=== PATIENT | female | born 1975 | race Caucasian/White ===

== ENCOUNTER 2017-01-19 13:00 | Emergency (ER) | payer MEDICARE, OTHER ==
--- NOTE | 2017-01-19 14:05 | ER Document Report ---
HPI - HPI Patient complains to provider of: worsening right ear pain Onset: Other - 10 days Quality of pain: Throbbing Pain Level: 5 Context: 41 yo female dx otitis externa yesterday and given cipro hc drops by urgent care. Originally given augmentin for otitis media 10 days ago. now has sweling behind right ear. Associated Symptoms: None Exacerbated by: Movement - of external ear Relieved by: Denies - ROS ROS below otherwise negative: Yes Systems Reviewed and Negative: Yes All other systems reviewed and negative - CARDIOVASCULAR Cardiovascular: DENIES: Chest pain - REPRODUCTIVE Reproductive: DENIES: : - DERM Skin Color: Normal Past Medical History - General Information source: Patient - Social History Smoking Status: Current Every Day Smoker Frequency of alcohol use: None Drug Abuse: None Lives with: Family Family History: None Patient has suicidal ideation: No Patient has homicidal ideation: No - Past Medical History Cardiac Medical History: Reports: Hx Hypercholesterolemia, Hx Hypertension Pulmonary Medical History: Endocrine Medical History: Reports: Hx Diabetes Mellitus Type 2, Hx Hypothyroidism Renal/ Medical History: Denies: Hx Peritoneal Dialysis GI Medical History: Musculoskeltal Medical History: Psychiatric Medical History: Reports: Hx Bipolar Disorder Traumatic Medical History: Reports: Hx Fractures - left ankle Infectious Medical History: Past Surgical History: Reports: Hx Cholecystectomy, Hx Orthopedic Surgery, Hx Tonsillectomy. Denies: Hx Pacemaker - Immunizations Hx Diphtheria, Pertussis, Tetanus Vaccination: Yes Vertical Provider Document - CONSTITUTIONAL Agree With Documented VS: Yes Exam Limitations: No Limitations General Appearance: No Apparent Distress - INFECTION CONTROL TRAVEL OUTSIDE OF THE [place] IN LAST 30 DAYS: No - HEENT HEENT: Tympanic Membrane Red. negative: Tympanic Membrane Bulging Notes: swelling to right canal, able to see the TM. posterior auricular node. NO cellulitis. Mastoid non tender. - NECK Neck: Supple - RESPIRATORY Respiratory: Breath Sounds Normal, No Respiratory Distress O2 Sat by Pulse Oximetry: 92 - CARDIOVASCULAR Cardiovascular: Regular Rate, Regular Rhythm - NEURO Level of Consciousness: Awake, Alert, Appropriate - DERM Integumentary: Warm, Dry Course - Re-evaluation Re-evalutation: 01/19/17 14:16 pt has progressed to external ear infection, so added oral cipro to the drops - Vital Signs Vital signs: Temp Pulse Resp BP Pulse Ox 98.7 F 88 16 149/78 H 92 01/19/17 13:22 01/19/17 13:22 01/19/17 13:22 01/19/17 13:22 01/19/17 13:22 Discharge - Discharge Clinical Impression: auricular adenopathy Otitis externa Qualifiers: Otitis externa type: unspecified type Laterality: right Chronicity: acute Qualified Code(s): H60.501 - Unspecified acute noninfective otitis externa, right ear Condition: Good Disposition: HOME, SELF-CARE Instructions: Acetaminophen, Otitis Externa ([facility]), Oral Narcotic Medication ( [facility]), Steroid Medication, Ciprofloxacin ([facility]), ENT Additional Instructions: warm compress stop the tylenol with codiene to er if increased swelling see ENT doctor if persists continue the augmentin Please complete the patient satisfaction survey if you get one, and return it.. If you do not receive a survey, then you can go to the [facility] website, [email or web address] and place your comments about your very good care. Thank you very much. It was a pleasure being your medical provider today. Prescriptions: Ciprofloxacin HCl [Cipro 500 mg Tablet] 500 mg PO BID #14 tablet Oxycodone HCl/Acetaminophen [Percocet 5-325 mg Tablet] 1 - 2 tab PO ASDIR PRN # 15 tablet PRN Reason: Forms: Return to Work Referrals: LINO NIX MD [Primary Care Provider] - Follow up as needed
[2017-01-19] MEDS ORDERED: PREDNISONE 20 MG TABLET PO ONE (14:13)
[2017-01-19] MEDS ORDERED: CIPROFLOXACIN HCL 500 MG TABLET PO ONE (14:13)
[2017-01-19 14:33] VITALS: BP 140/82
== END 2017-01-19 14:33 | disposition home or self-care (01) ==
LOC: ER 13:00
DX: H60.501 Unspecified acute noninfective otitis externa, right ear (principal); R59.0 Localized enlarged lymph nodes; H92.01 Otalgia, right ear; F17.200 Nicotine dependence, unspecified, uncomplicated
CPT/HCPCS: 99282; A9270 ×2; J7512

== ENCOUNTER → 2017-05-31 | Outpatient (CLI) | payer MEDICARE, OTHER ==
[2017-05-31 12:05] LABS: HEMATOCRIT 34.5 % (36.0-47.0); HGB HCT DIFFERENCE 1.5; MEAN CORPUSCULAR HEMOGLOBIN 36.5 pg (27.0-33.4); MEAN CORPUSCULAR HGB CONC 34.7 g/dL (32.0-36.0); MEAN CORPUSCULAR VOLUME 105 fl (80-97); RED BLOOD COUNT 3.28 10^6/uL (3.72-5.28); RED CELL DISTRIBUTION WIDTH 12.4 % (11.5-14.0); WHITE BLOOD COUNT 7.1 10^3/uL (4.0-10.5)
[2017-05-31 12:27] LABS: ALANINE AMINOTRANSFERASE 30 U/L (9-52); ALBUMIN 4.3 g/dL (3.5-5.0); ALKALINE PHOSPHATASE 57 U/L (38-126); ANION GAP 12 (5-19); ASPARTATE AMINO TRANSFERASE 31 U/L (14-36); BILIRUBIN,DIRECT 0.6 mg/dL (0.0-0.4); BILIRUBIN,TOTAL 0.8 mg/dL (0.2-1.3); BLOOD UREA NITROGEN 11 mg/dL (7-20); CALCIUM 9.3 mg/dL (8.4-10.2); CARBON DIOXIDE 25 mmol/L (22-30); CHLORIDE 102 mmol/L (98-107); CHOLESTEROL 219.26 mg/dL (0-200); CREATININE RESULT 0.64 mg/dL (0.52-1.25); Direct HDL 37 mg/dL (>40); GLUCOSE 124 mg/dL (75-110); LITHIUM 0.7 mEq/L (0.6-1.2); POTASSIUM 4.9 mmol/L (3.6-5.0); SODIUM 138.7 mmol/L (137-145); TRIGLYCERIDES 355 mg/dL (<150)
[2017-05-31 12:38] LABS: DIRECT LDL 137 mg/dL (<100); VALPROIC ACID 58.9 ug/mL (50.0-120.0)
== END ==
LOC: OD 11:14
PROVIDERS: ATTEND Nurse Practitioner Primary Care
DX: Z79.899 Other long term (current) drug therapy (principal); F32.9 Major depressive disorder, single episode, unspecified; R51 Headache; E66.01 Morbid (severe) obesity due to excess calories; L63.9 Alopecia areata, unspecified; F41.9 Anxiety disorder, unspecified; R60.9 Edema, unspecified
CPT/HCPCS: 36415; 80053; 80061; 80164; 80178; 82306; 83036; 84443; 85027

== ENCOUNTER 2017-07-30 16:41 | Emergency (ER) | payer MEDICARE, OTHER ==
[2017-07-30] MEDS ORDERED: KETOROLAC TROMETHAMINE 60 MG/2 ML SDV IM ONE (18:10)
--- NOTE | 2017-07-30 18:19 | ER Document Report ---
ED Extremity Problem, Lower - General Chief Complaint: Ankle Pain Stated Complaint: RIGHT ANKLE PAIN, SWELLING Time Seen by Provider: 07/30/17 17:42 Mode of Arrival: Wheelchair Information source: Patient Notes: 41-year-old female presents to ED for complaint of right ankle pain. She states she does not recall any injury but it feels like it is broken. She states one day she woke up with pain in the ankle and the pain has been getting increasingly worse with swelling. She has a history of fracture to the left ankle with multiple surgeries. And she states feels just like when she broke her left ankle. TRAVEL OUTSIDE OF THE [place] IN LAST 30 DAYS: No - HPI Patient complains to provider of: Pain, Swelling Location: Ankle Occurred: Other - Last 3-4 days Onset/Duration: Gradual Quality of pain: Sharp, Throbbing Severity: Moderate Pain Level: 4 Context: Other - Does not remember any injury Recent injury: Possibly - Does not remember any injury Associated symptoms: Painful ambulation Exacerbated by: Hanging down, Movement, Walking Relieved by: Nothing - Related Data Allergies/Adverse Reactions: celecoxib [From Celebrex] Allergy (Severe, Verified 07/30/17 16:45) Throat swells promethazine HCl [From Phenergan] Allergy (Severe, Verified 07/30/17 16:45) Phelebitis in arm (IV Phenergan only) Sulfa (Sulfonamide Antibiotics) Allergy (Severe, Verified 07/30/17 16:45) Throat swells Tetanus Toxoid,Fluid * [Tetanus Toxoid,Fluid] Allergy (Severe, Verified 16:45) Hives ziprasidone HCl [From Geodon] Allergy (Severe, Verified 07/30/17 16:45) Throat swells ziprasidone mesylate [From Geodon] Allergy (Severe, Verified 07/30/17 16:45) Throat swells zolpidem tartrate [From Ambien] Allergy (Severe, Verified 07/30/17 16:45) Hallucinations lamotrigine [From Lamictal] Allergy (Intermediate, Verified 07/30/17 16:45) Rash on chest Past Medical History - General Information source: Patient - Social History Smoking Status: Former Smoker Cigarette use (# per day): No Chew tobacco use (# tins/day): No Smoking Education Provided: No Frequency of alcohol use: None Drug Abuse: None Occupation: None Lives with: Parents Family History: Arthritis, COPD, CVA, DM, Hyperlipidemia, Malignancy. denies: CAD, Hypertension, Thyroid Disfunction Patient has suicidal ideation: No Patient has homicidal ideation: No - Past Medical History Cardiac Medical History: Reports: Hx Hypercholesterolemia, Hx Hypertension Pulmonary Medical History: Reports: None EENT Medical History: Reports: None Neurological Medical History: Reports: Hx Migraine Endocrine Medical History: Reports: Hx Diabetes Mellitus Type 2, Hx Hypothyroidism Renal/ Medical History: Reports: None Malignancy Medical History: Reports: None GI Medical History: Reports: None Musculoskeltal Medical History: Reports Hx Arthritis, Reports Hx Musculoskeletal Deformity, Reports Hx Musculoskeletal Trauma Skin Medical History: Reports None Psychiatric Medical History: Reports: Hx Anxiety, Hx Bipolar Disorder Traumatic Medical History: Reports: Hx Fractures - left ankle Infectious Medical History: Reports: None Past Surgical History: Reports: Hx Cholecystectomy, Hx Myringotomy - Right ear to, Hx Oral Surgery - [place] teeth, Hx Orthopedic Surgery, Hx Tonsillectomy - Immunizations Hx Diphtheria, Pertussis, Tetanus Vaccination: Yes Review of Systems - Review of Systems Constitutional: No symptoms reported EENT: No symptoms reported Cardiovascular: No symptoms reported Respiratory: No symptoms reported Gastrointestinal: No symptoms reported Genitourinary: No symptoms reported Female Genitourinary: No symptoms reported Musculoskeletal: Ankle swelling - And pain Skin: No symptoms reported Hematologic/Lymphatic: No symptoms reported Neurological/Psychological: No symptoms reported Physical Exam - Vital signs Vitals: Temp Pulse Resp BP Pulse Ox 98.8 F 100 20 152/100 H 94 07/30/17 16:46 07/30/17 16:46 07/30/17 16:46 07/30/17 16:46 07/30/17 16:46 Interpretation: Normal - General General appearance: Appears well, Alert - HEENT Head: Normocephalic, Atraumatic Eyes: Normal Pupils: PERRL - Respiratory Respiratory status: No respiratory distress Chest status: Nontender Breath sounds: Normal Chest palpation: Normal - Cardiovascular Rhythm: Regular Heart sounds: Normal auscultation Murmur: No - Abdominal Inspection: Normal Distension: No distension Bowel sounds: Normal Tenderness: Nontender Organomegaly: No organomegaly - Back Back: Normal, Nontender - Extremities General upper extremity: Normal inspection, Nontender, Normal color, Normal ROM , Normal temperature General lower extremity: Normal inspection, Normal color, Normal temperature Ankle: Tender, Limited ROM - Due to pain. No: Abrasion, Deformity, Ecchymosis, Edema, Instability, Laceration, Positive [place]'s test, Unable to bear weight - Neurological Neuro grossly intact: Yes Cognition: Normal Orientation: AAOx4 [place] Coma Scale Eye Opening: Spontaneous [place] Coma Scale Verbal: Oriented [place] Coma Scale Motor: Obeys Commands Sepideh Coma Scale Total: 15 Speech: Normal Motor strength normal: LUE, RUE, LLE, RLE Sensory: Normal - Psychological Associated symptoms: Normal affect, Normal mood - Skin Skin Temperature: Warm Skin Moisture: Dry Skin Color: Normal Course - Re-evaluation Re-evalutation: 07/30/17 19:50 Discussed x-rays with patient. X-ray shows heel spurs. Patient was given instructions of care for heel spurs exercise ibuprofen elevation ice. And she was given name and number of Dr. Castillo who is a wood fence installer for follow-up if the pain continues. - Vital Signs Vital signs: Temp Pulse Resp BP Pulse Ox 98.8 F 84 20 149/80 H 94 07/30/17 16:46 07/30/17 19:34 07/30/17 16:46 07/30/17 19:34 07/30/17 19:34 - Diagnostic Test Radiology reviewed: Image reviewed, Reports reviewed Discharge - Discharge Clinical Impression: Heel spur Qualifiers: Laterality: right Qualified Code(s): M77.31 - Calcaneal spur, right foot Condition: Stable Disposition: HOME, SELF-CARE Additional Instructions: Plantar Fasciitis or Heel Spur Plantar fasciitis is an inflammation of a ligament on the underside of the foot. It can be caused by injury, overuse such as running, or poorly fitting shoes. There may be a bone spur on the heel if inflammation has persisted a long time. Plantar fasciitis is treated with stretching exercises and antiinflammatory medicine. More severe cases may require injection of cortisone. It may take several weeks to get better. If nothing gives relief, an operation to remove the heel spur may help. Call or return if there is redness, increasing pain, swelling, fever, or any other new symptoms. Anti-Inflammatory Medication You have received a prescription for an antiinflammatory agent. This is an excellent, safe drug for pain control. In addition, it has potent antiinflammatory effects which are beneficial, especially in the treatment of injuries, arthritis, or tendonitis. It's best to take this medicine with food. Persons with ulcer disease or allergy to aspirin should notify their physician of this before taking this drug. Take the medication exactly as prescribed. Don't take additional doses unless instructed to do so by your doctor. If you develop wheezing, shortness of breath, hives, faintness, stomach pain, vomiting, or dark black stools, return for re-evaluation at once. Exercises for the Foot Muscles Stretching and strengthening of the foot muscles is an important part of recovery from injury, as well as in treatment and prevention of overuse syndromes like plantar fasciitis. TOWEL CURLS: Put your foot on a dry towel. Curl your toes to pick it up, then drop it. As it becomes easier, use a heavier towel. Repeat 20 times, twice daily. QUINTANILLA CURLS: Lift and turn your knee, so your foot is against the opposite leg about mid-quintanilla. Try to "grab" the entire quintanilla bone with your toes, while moving your foot up and down the leg for one minute. Repeat twice daily. TOE LIFTS: Put your opposite foot over your 2nd to 5th toes. Now lift the toes up, pushing the other foot upward. Repeat 10 times, twice daily. Repeat using the large toe. EVERSIONS: Cross the opposite foot over, placing the heel just behind the 4th and 5th toes. Try to lift up the outside of the bottom foot. Hold 10 seconds. Repeat twice daily. FOLLOW-UP CARE: If you have been referred to a physician for follow-up care, call the physician s office for an appointment as you were instructed or within the next two days. If you experience worsening or a significant change in your symptoms, notify the physician immediately or return to the Emergency Department at any time for re-evaluation. Prescriptions: Naproxen 500 mg PO BIDP PRN #14 tablet PRN Reason: Forms: Elevated Blood Pressure Referrals: LINO NIX MD [Primary Care Provider] - Follow up as needed EZEKIEL CASTILLO DPM [ACTIVE STAFF] - Follow up as needed
--- NOTE | 2017-07-30 18:28 | RADIOLOGY REPORT (SQ) ---
EXAM DESCRIPTION: ANKLE RIGHT COMPLETE COMPLETED DATE/TIME: 07/30/2017 6:17 pm REASON FOR STUDY: pain and swelling COMPARISON: None. NUMBER OF VIEWS: Three views. TECHNIQUE: AP, lateral, and oblique radiographic images acquired of the right ankle. LIMITATIONS: None. FINDINGS: MINERALIZATION: Normal. BONES: No fracture or dislocation. Calcaneal spurs are present. JOINTS: No effusions. SOFT TISSUES: No soft tissue swelling. No foreign body. OTHER: No other significant finding. IMPRESSION: No acute abnormality. Calcaneal spurs. TECHNICAL DOCUMENTATION: JOB ID: [id number] [employer]- All Rights Reserved
[2017-07-30 19:41] VITALS: BP 149/80
== END 2017-07-30 19:34 | disposition home or self-care (01) ==
LOC: ER 16:41
DX: M77.31 Calcaneal spur, right foot (principal); M25.571 Pain in right ankle and joints of right foot; E78.00 Pure hypercholesterolemia, unspecified; I10 Essential (primary) hypertension; E11.9 Type 2 diabetes mellitus without complications; E03.9 Hypothyroidism, unspecified; Z88.2 Allergy status to sulfonamides; Z88.7 Allergy status to serum and vaccine; Z87.891 Personal history of nicotine dependence; Z90.49 Acquired absence of other specified parts of digestive tract
CPT/HCPCS: 99283; 96372; 73610; J1885

== ENCOUNTER 2017-09-09 13:24 | Emergency (ER) | payer MEDICARE, OTHER ==
[2017-09-09] MEDS ORDERED: HYDROCODONE/ACETAMINOPHEN 10-325 MG TABLET PO ONE (14:25)
[2017-09-09] MEDS ORDERED: ONDANSETRON 4 MG TAB.RAPDIS PO ONE (14:25)
--- NOTE | 2017-09-09 14:30 | ER Document Report ---
ED Fall - General Mode of Arrival: Ambulatory Information source: Patient TRAVEL OUTSIDE OF THE U.[place] IN LAST 30 DAYS: No <SURY CORMIER - Last Filed: 09/09/17 14:35> <MIKEL FUENTES - Last Filed: 09/09/17 16:15> - General Chief Complaint: Fall Stated Complaint: FALL/HEAD INJURY,BACK PAIN,HEADACHE Time Seen by Provider: 09/09/17 14:20 Notes: Patient is a 42 year old female who is presenting to the emergency department complaining of back pain and headache secondary to a mechanical fall onset 0700 this morning. Patient states that she was walking down steps with a child when she proceeded to fall down four steps on her back. Patient states that she hit her head twice on the concrete. Patient states that she loss of consciousness for 1 minute which was witnessed by family members. Patient states she proceeded to drive here from [place]. Patients associated symptoms include neck soreness, and dizziness. Patient denies blurry vision or confusion. (SURY CORMIER) - Related data Allergies/Adverse Reactions: celecoxib [From Celebrex] Allergy (Severe, Verified 09/09/17 13:36) Throat swells promethazine HCl [From Phenergan] Allergy (Severe, Verified 09/09/17 13:36) Phelebitis in arm (IV Phenergan only) Sulfa (Sulfonamide Antibiotics) Allergy (Severe, Verified 09/09/17 13:36) Throat swells Tetanus Toxoid,Fluid * [Tetanus Toxoid,Fluid] Allergy (Severe, Verified 13:36) Hives ziprasidone HCl [From Geodon] Allergy (Severe, Verified 09/09/17 13:36) Throat swells ziprasidone mesylate [From Geodon] Allergy (Severe, Verified 09/09/17 13:36) Throat swells zolpidem tartrate [From Ambien] Allergy (Severe, Verified 09/09/17 13:36) Hallucinations lamotrigine [From Lamictal] Allergy (Intermediate, Verified 09/09/17 13:36) Rash on chest Home Medications: Current Home Medications Buspirone HCl [Buspirone HCl] 1 tab PO DAILY 09/09/17 [History] Ergocalciferol (Vitamin D2) [Vitamin D2] 1.25 mg PO ASDIR PRN 12/11/17 [History] [place] Carbonate [B[place] Carbonate ER] 1 tab PO ASDIR PRN 09/09/17 [History] Metformin HCl [Metformin HCl ER] 1 tab PO BID 09/09/17 [History] Norethindrone-E.estradiol-Iron [Junel Fe 1 mg-20 Mcg Tablet] 1 tab PO DAILY 08/16 [History] [place]-3 Acid Ethyl Esters [Lovaza 1 gm Capsule] 2 tab PO BID 09/09/17 [History] Quetiapine Fumarate [Seroquel Xr] 2 tab PO QHS 09/09/17 [History] Past Medical History - General Information source: Patient - Social History Smoking Status: Unknown if Ever Smoked Family History: Arthritis, COPD, CVA, DM, Hyperlipidemia, Malignancy - Past Medical History Cardiac Medical History: Reports: Hx Hypercholesterolemia, Hx Hypertension Pulmonary Medical History: Neurological Medical History: Reports: Hx Migraine Endocrine Medical History: Reports: Hx Diabetes Mellitus Type 2, Hx Hypothyroidism GI Medical History: Musculoskeltal Medical History: Reports Hx Arthritis, Reports Hx Musculoskeletal Deformity, Reports Hx Musculoskeletal Trauma Psychiatric Medical History: Reports: Hx Anxiety, Hx Bipolar Disorder Traumatic Medical History: Reports: Hx Fractures - left ankle Infectious Medical History: Past Surgical History: Reports: Hx Cholecystectomy, Hx Myringotomy - Right ear to, Hx Oral Surgery - [place] teeth, Hx Orthopedic Surgery, Hx Tonsillectomy - Immunizations Hx Diphtheria, Pertussis, Tetanus Vaccination: Yes <SURY CORMIER - Last Filed: 09/09/17 14:35> Review of Systems - Review of Systems Constitutional: No symptoms reported EENT: No symptoms reported Cardiovascular: See HPI, Dizziness Respiratory: No symptoms reported Gastrointestinal: No symptoms reported Genitourinary: No symptoms reported Female Genitourinary: No symptoms reported Musculoskeletal: See HPI, Back pain, Neck pain Skin: No symptoms reported Hematologic/Lymphatic: No symptoms reported Neurological/Psychological: See HPI, Lost consciousness, Headaches -: Yes All other systems reviewed and negative <SURY CORMIER - Last Filed: 09/09/17 14:35> Physical Exam - General General appearance: Appears well, Alert In distress: None - HEENT Head: Normocephalic, Other - tenderness to palpation to the right occiput Neck: Other - Cervical spine is tender to palpation - Respiratory Respiratory status: No respiratory distress - Cardiovascular Rhythm: Regular Heart sounds: Normal auscultation - Abdominal Inspection: Normal - Back Back: Tender - to paraspinal muscles and external right iliac crest. - Extremities General upper extremity: Normal ROM General lower extremity: Normal ROM - Neurological Neuro grossly intact: Yes Cognition: Normal Orientation: AAOx4 [place] Coma Scale Eye Opening: Spontaneous [place] Coma Scale Verbal: Oriented [place] Coma Scale Motor: Obeys Commands Sepide[place] Coma Scale Total: 15 Speech: Normal - Psychological Associated symptoms: Normal affect, Normal mood - Skin Skin Temperature: Warm Skin Moisture: Dry Skin Color: Normal <SURY CORMIER - Last Filed: 09/09/17 14:35> - Vital signs Vitals: Temp Pulse Resp BP Pulse Ox 99.4 F 94 20 157/85 H 96 09/09/17 13:42 09/09/17 13:42 09/09/17 13:42 09/09/17 13:42 09/09/17 13:42 Course - Diagnostic Test Radiology reviewed: Image reviewed - Chronic changes, lumbar spondylosis. No evidence of acute injury., Reports reviewed <MIKEL FUENTES - Last Filed: 09/09/17 16:15> - Vital Signs Vital signs: Temp Pulse Resp BP Pulse Ox 99.4 F 94 20 157/85 H 96 09/09/17 13:42 09/09/17 13:42 09/09/17 13:42 09/09/17 13:42 09/09/17 13:42 Discharge <SURY CORMIER - Last Filed: 09/09/17 14:35> <MIKEL FUENTES - Last Filed: 09/09/17 16:15> - Discharge Clinical Impression: Closed head injury, Low back strain Condition: Good Disposition: HOME, SELF-CARE Additional Instructions: Return for any problem or concern. Ice to areas of pain and swelling. Contact your primary care physician for follow-up. Start initially with an anti- inflammatory such as ibuprofen or Aleve. Prescribed medications may cause sedation, unsteadiness, as well as some altered mental status so use caution with ambulation as well as any decision making. Prescriptions: Acetaminophen with Codeine [Tylenol #3 Tablet] 1 - 2 each PO Q6HP PRN #14 tablet PRN Reason: For Pain Methocarbamol [Robaxin 750 mg Tablet] 750 - 1,500 mg PO Q8HP PRN #20 tablet PRN Reason: For Pain Scribe Attestation: 09/09/17 16:15 I personally performed the services provided in the documentation, reviewed and edited the documentation which was dictated to the scribe in my presence. It accurately records my words and actions. ANIBAL (MIKEL FUENTES) Scribe Documentation - Scribe Written by Pawel:: Pawel Solis, 09/09/2017 14:35 acting as scribe for :: Meg <SURY CORMIER - Last Filed: 09/09/17 14:35>
--- NOTE | 2017-09-09 15:00 | RADIOLOGY REPORT (SQ) ---
EXAM DESCRIPTION: CT HEAD WITHOUT COMPLETED DATE/TIME: 09/09/2017 2:46 pm REASON FOR STUDY: Trauma with pain COMPARISON: 02/27/2011 TECHNIQUE: Axial images acquired through the brain without intravenous contrast. Images reviewed wi th bone, brain and subdural windows. Images stored on PACS. All CT scanners at this facility use dose modulation, iterative reconstruction, and/or weight based d osing when appropriate to reduce radiation dose to as low as reasonably achievable (ALARA). [facility]: Dose Right [facility]: CareDose [facility]: Dose Right [facility]: Teradose 4D [facility]: Smart BlackDuck RADIATION DOSE: CT Rad equipment meets quality standard of care and radiation dose reduction techniq ues were employed. CTDIvol: 64.6 mGy. DLP: 1034 mGy-cm. mGy. LIMITATIONS: None. FINDINGS: VENTRICLES: Normal size and contour. CEREBRUM: No masses. No hemorrhage. No midline shift. No evidence for acute infarction. Normal gra y/white matter differentiation. No areas of low density in the white matter. CEREBELLUM: No masses. No hemorrhage. No alteration of density. No evidence for acute infarction. EXTRAAXIAL SPACES: No fluid collections. No masses. ORBITS AND GLOBE: No intra- or extraconal masses. Normal contour of globe without masses. CALVARIUM: No fracture. PARANASAL SINUSES: No fluid or mucosal thickening. SOFT TISSUES: No mass or hematoma. OTHER: No other significant finding. IMPRESSION: NORMAL BRAIN CT WITHOUT CONTRAST. EVIDENCE OF ACUTE STROKE: NO. COMMENT: Quality ID # [id number]: Final reports with documentation of one or more dose reduction techniques (e.g., Automated exposure control, adjustment of the mA and/or kV according to patient size, use of iterative reconstruction technique) TECHNICAL DOCUMENTATION: JOB ID: [id number] [employer]- All Rights Reserved
--- NOTE | 2017-09-09 15:16 | RADIOLOGY REPORT (SQ) ---
EXAM DESCRIPTION: CT CERVICAL SPINE WITHOUT COMPLETED DATE/TIME: 09/09/2017 2:46 pm REASON FOR STUDY: Trauma with pain COMPARISON: 02/27/2011 TECHNIQUE: Axial images acquired through the cervical spine without intravenous contrast. Images re viewed with lung, soft tissue and bone windows. Reconstructed coronal and sagittal MPR images review ed. Images stored on PACS. All CT scanners at this facility use dose modulation, iterative reconstruction, and/or weight based d osing when appropriate to reduce radiation dose to as low as reasonably achievable (ALARA). [facility]: Dose Right [facility]: CareDose [facility]: Dose Right [facility]: Teradose 4D [facility]: Smart GoodThreads RADIATION DOSE: CT Rad equipment meets quality standard of care and radiation dose reduction techniq ues were employed. CTDIvol: 21.9 mGy. DLP: 432 mGy-cm. mGy. LIMITATIONS: Motion artifact. FINDINGS: ALIGNMENT: Anatomic. MINERALIZATION: Normal. VERTEBRAL BODIES: No fractures or dislocation. DISCS: No significant disc disease. FACETS, LATERAL MASSES, POSTERIOR ELEMENTS: No fractures. No dislocation. No acute findings. HARDWARE: None in the spine. VISUALIZED RIBS: No fractures. LUNG APICES AND SOFT TISSUES: No significant or acute findings. OTHER: No other significant finding. IMPRESSION: NO ACUTE OR SIGNIFICANT FINDINGS IN THE CERVICAL SPINE. TECHNICAL DOCUMENTATION: JOB ID: [id number] Quality ID # [id number]: Final reports with documentation of one or more dose reduction techniques (e.g., Au tomated exposure control, adjustment of the mA and/or kV according to patient size, use of iterative reconstruction technique) 2010 [employer]- All Rights Reserved
--- NOTE | 2017-09-09 15:47 | RADIOLOGY REPORT (SQ) ---
EXAM DESCRIPTION: L SPINE WHOLE COMPLETED DATE/TIME: 09/09/2017 3:10 pm REASON FOR STUDY: Trauma with pain COMPARISON: 02/27/2011 NUMBER OF VIEWS: Five views including obliques. TECHNIQUE: AP, lateral, oblique, and sacral radiographic images acquired of the lumbar spine. LIMITATIONS: None. FINDINGS: MINERALIZATION: Normal. SEGMENTATION: Normal. No transitional anatomy. ALIGNMENT: Mild convex right scoliosis. VERTEBRAE: Maintained height. No fracture or worrisome bone lesion. DISCS: Multilevel disc space narrowing with osteophytes. POSTERIOR ELEMENTS: Pedicles and facets are intact. No pars defect or posterior arch defects. Facet arthropathy is present. HARDWARE: None in the spine. PARASPINAL SOFT TISSUES: Normal. PELVIS: Intact as visualized. No fractures or worrisome bone lesions. SI joints intact. OTHER: No other significant finding. IMPRESSION: Spondylosis. No acute findings. TECHNICAL DOCUMENTATION: JOB ID: [id number] [employer]- All Rights Reserved
[2017-09-09 16:36] VITALS: BP 149/82
== END 2017-09-09 16:23 | disposition home or self-care (01) ==
LOC: ER 13:24
DX: S39.012A Strain of muscle, fascia and tendon of lower back, initial encounter (principal); R51 Headache; R42 Dizziness and giddiness; M54.9 Dorsalgia, unspecified; W10.9XXA Fall (on) (from) unspecified stairs and steps, initial encounter; E78.00 Pure hypercholesterolemia, unspecified; I10 Essential (primary) hypertension; E11.9 Type 2 diabetes mellitus without complications; E03.9 Hypothyroidism, unspecified; Z88.2 Allergy status to sulfonamides; Z90.49 Acquired absence of other specified parts of digestive tract
CPT/HCPCS: 99284; 72110; 70450; 72125; A9270 ×2; S0119

== ENCOUNTER 2018-04-20 14:46 | Emergency (ER) | payer MEDICARE, OTHER ==
--- NOTE | 2018-04-20 16:05 | RADIOLOGY REPORT (SQ) ---
EXAM DESCRIPTION: FOOT RIGHT COMPLETE COMPLETED DATE/TIME: 04/20/2018 3:50 pm REASON FOR STUDY: pain COMPARISON: None. NUMBER OF VIEWS: Three views. TECHNIQUE: AP, lateral and oblique without weight bearing radiographic images acquired of the right foot. LIMITATIONS: None. FINDINGS: MINERALIZATION: Normal. BONES: No acute fracture or dislocation. No worrisome bone lesions. Plantar calcaneal spur. JOINTS: No erosions. No jose-articular osteopenia. No chondrocalcinosis. SOFT TISSUES: No swelling. No calcifications. OTHER: No other significant finding. IMPRESSION: HEEL SPUR. NO OTHER SIGNIFICANT FINDINGS. TECHNICAL DOCUMENTATION: JOB ID: [id number] [employer]- All Rights Reserved Reading location - IP/workstation name: [email or web address]
--- NOTE | 2018-04-20 16:24 | ER Document Report ---
ED Extremity Problem, Lower - General Chief Complaint: Foot Pain Stated Complaint: RIGHT FOOT PAIN Time Seen by Provider: 04/20/18 15:10 Mode of Arrival: Wheelchair Information source: Patient Notes: Patient presents with complaints of right ankle pain that started yesterday. Patient denies any injuries but reports she may have twisted it wrong and she is unable to bear any weight. TRAVEL OUTSIDE OF THE [place] IN LAST 30 DAYS: No - Related Data Allergies/Adverse Reactions: celecoxib [From Celebrex] Allergy (Severe, Verified 04/20/18 14:48) Throat swells promethazine HCl [From Phenergan] Allergy (Severe, Verified 04/20/18 14:48) Phelebitis in arm (IV Phenergan only) Sulfa (Sulfonamide Antibiotics) Allergy (Severe, Verified 04/20/18 14:48) Throat swells Tetanus Toxoid,Fluid * [Tetanus Toxoid,Fluid] Allergy (Severe, Verified 14:48) Hives ziprasidone HCl [From Geodon] Allergy (Severe, Verified 04/20/18 14:48) Throat swells ziprasidone mesylate [From Geodon] Allergy (Severe, Verified 04/20/18 14:48) Throat swells zolpidem tartrate [From Ambien] Allergy (Severe, Verified 04/20/18 14:48) Hallucinations lamotrigine [From Lamictal] Allergy (Intermediate, Verified 04/20/18 14:48) Rash on chest Past Medical History - General Information source: Patient - Social History Smoking Status: Never Smoker Chew tobacco use (# tins/day): No Drug Abuse: None Family History: Arthritis, COPD, CVA, DM, Hyperlipidemia, Malignancy Patient has suicidal ideation: No Patient has homicidal ideation: No - Past Medical History Cardiac Medical History: Reports: Hx Hypercholesterolemia, Hx Hypertension Denies: Hx Coronary Artery Disease, Hx Heart Attack Pulmonary Medical History: Denies: Hx Asthma, Hx Bronchitis, Hx COPD, Hx Pneumonia Neurological Medical History: Reports: Hx Migraine. Denies: Hx Cerebrovascular Accident, Hx Seizures Endocrine Medical History: Reports: Hx Diabetes Mellitus Type 2, Hx Hypothyroidism Renal/ Medical History: Denies: Hx Peritoneal Dialysis GI Medical History: Musculoskeletal Medical History: Reports Hx Arthritis, Reports Hx Musculoskeletal Deformity, Reports Hx Musculoskeletal Trauma Psychiatric Medical History: Reports: Hx Anxiety, Hx Bipolar Disorder Traumatic Medical History: Reports: Hx Fractures - left ankle Infectious Medical History: Past Surgical History: Reports: Hx Cholecystectomy, Hx Myringotomy - Right ear to, Hx Oral Surgery - [place] teeth, Hx Orthopedic Surgery, Hx Tonsillectomy. Denies: Hx Pacemaker - Immunizations Hx Diphtheria, Pertussis, Tetanus Vaccination: Yes Review of Systems - Review of Systems Constitutional: No symptoms reported EENT: No symptoms reported Cardiovascular: No symptoms reported Respiratory: No symptoms reported Gastrointestinal: No symptoms reported Genitourinary: No symptoms reported Female Genitourinary: No symptoms reported Musculoskeletal: See HPI Skin: No symptoms reported Hematologic/Lymphatic: No symptoms reported Neurological/Psychological: No symptoms reported Physical Exam - Vital signs Vitals: Temp Pulse Resp BP Pulse Ox 99.2 F 93 20 148/82 H 97 04/20/18 14:52 04/20/18 14:52 04/20/18 14:52 04/20/18 14:52 04/20/18 14:52 - Notes Notes: PHYSICAL EXAMINATION: GENERAL: Well-appearing, well-nourished and in no acute distress. HEAD: Atraumatic, normocephalic. EYES: Pupils equal round and reactive to light, extraocular movements intact, conjunctiva are normal. ENT: Nares patent, oropharynx clear without exudates. Moist mucous membranes. NECK: Normal range of motion, supple without lymphadenopathy LUNGS: Breath sounds clear to auscultation bilaterally and equal. No wheezes rales or rhonchi. HEART: Regular rate and rhythm without murmurs ABDOMEN: Soft, nontender, nondistended abdomen. No guarding, no rebound. No masses appreciated. Female : deferred Musculoskeletal: Normal range of motion, no pitting or edema. No cyanosis. Pain with movement to right ankle and foot. NEUROLOGICAL: Cranial nerves grossly intact. Normal speech, normal gait. Normal sensory, motor exams PSYCH: Normal mood, normal affect. SKIN: Warm, Dry, normal turgor, no rashes or lesions noted. Course - Re-evaluation Re-evalutation: X-ray is negative for any acute fractures or dislocations. Will place patient in an Ivan wrap and crutches for comfort. Patient will follow-up with her primary care provider and in the meantime ice and elevate as much as possible. Patient instructed to take Motrin 600 mg every 6 hours for pain. Patient verbalizes understanding and agreement with plan of care. - Vital Signs Vital signs: Temp Pulse Resp BP Pulse Ox 98.4 F 82 16 146/78 H 99 04/20/18 16:25 04/20/18 16:25 04/20/18 16:25 04/20/18 16:25 04/20/18 16:25 Discharge - Discharge Clinical Impression: Right ankle sprain Qualifiers: Encounter type: initial encounter Involved ligament of ankle: unspecified ligament Qualified Code(s): S93.401A - Sprain of unspecified ligament of right ankle, initial encounter Condition: Stable Disposition: HOME, SELF-CARE Additional Instructions: SPRAIN: Your injury is a sprain. A sprain results from stretching or tearing of the ligaments, usually from a twisting injury. The ligaments will require time and protection in order to heal properly. Many sprains are quite disabling and should be taken seriously. The usual initial treatment of sprains is cold packs, elevation, and rest of the injured area. Your physician has assessed the seriousness of your ligament injury, and has outlined a treatment plan. Understand that this treatment may change, depending on how you progress. If a re-examination was recommended, it is important that you follow up as instructed. Call the doctor any time if there is severe pain, numbness, or loss of function in the injured area. IVAN WRAP: A compression dressing (ivan wrap) has been placed. This helps hold the area still. It limits swelling and internal bleeding. The wrap should be comfortably snug -- not tight. You should feel a sense of pressure, but not severe pain under the wrap. Unless the physician tells you otherwise, you can adjust the wrap for comfort. If the wrap causes symptoms suggesting it's too tight -- uncomfortable pressure, swelling or discoloration beyond the wrap, numbness, or severe pain - - you must loosen the wrap. If these symptoms don't resolve promptly, return for re-evaluation. USE OF CRUTCHES: The doctor has recommended that you not bear weight at this time. You will need to use crutches. Adjust the crutches so the tops come to about two inches under the armpit while you are standing upright. Use your hands -- not your armpits -- to support your weight. To get into a chair, support yourself with one crutch on the injured side. Hold the chair with the other hand, then lower yourself while putting all your weight on the good leg. Going up stairs is `good leg up, step up, then bring up crutches and bad leg.' Down stairs is `bad leg and crutches down, then bring good leg down.' If you develop numbness or swelling in an arm or hand, you are using the crutches incorrectly. Return if you are having any problems with the crutches. ICE & ELEVATION: Apply ice packs frequently against the painful area. Many different schedules are recommended, such as "20 minutes on, 20 minutes off" or "one hour ice, two hours rest." If you need to work, you may need to go longer between ice treatments. You should plan to have the area ice packed AT LEAST one- fourth of the time. The ice should be applied over the wrap, tape, or splint, or over a layer of cloth -- not directly against the skin. Some ice bags have a built-in cloth and can be put directly on the skin. Your injured part should be elevated as much as possible over the next 48 hours. Try to keep the injury above the level of the heart. Avoid use of the injured area. Elevation and rest will decrease the swelling. USE OF [id number] IBUPROFEN: Ibuprofen (Advil, Nuprin, Medipren, Motrin IB) is a medication for fever and pain control. In addition, it has anti- inflammatory effects which may be beneficial, especially in the treatment of injuries. It's best to take ibuprofen with food. Persons with ulcer disease or allergy to aspirin should notify their physician of this before taking ibuprofen. Ibuprofen can be given every four to six hours, for a total of four doses daily. Age Pain or fever dose Antiinflammatory dose 6-8 yr 200 mg (1 tab) 200 mg (1 tab) 9-11 yr 200 mg (1 tab) 200-400 mg (1-2 tab) 11-14 yr 200-400 mg (1-2 tab) 400 mg (2 tab) 15-adult 400 mg (2 tab) 600 mg (3 tab) FOLLOW-UP CARE: If you have been referred to a physician for follow-up care, call the physician s office for an appointment as you were instructed or within the next two days. If you experience worsening or a significant change in your symptoms, notify the physician immediately or return to the Emergency Department at any time for re-evaluation. Referrals: LINO NIX MD [Primary Care Provider] - Follow up as needed
[2018-04-20 16:26] VITALS: BP 146/78
== END 2018-04-20 16:26 | disposition home or self-care (01) ==
LOC: ER 14:46
DX: M25.571 Pain in right ankle and joints of right foot (principal); S93.401A Sprain of unspecified ligament of right ankle, initial encounter; X58.XXXA Exposure to other specified factors, initial encounter; I10 Essential (primary) hypertension; E11.9 Type 2 diabetes mellitus without complications; Z88.8 Allergy status to other drugs, medicaments and biological substances; Z88.2 Allergy status to sulfonamides; Z88.7 Allergy status to serum and vaccine
CPT/HCPCS: 99283

== ENCOUNTER 2018-12-01 18:06 | Emergency (ER) | payer MEDICARE, OTHER ==
[2018-12-01 18:26] VITALS: BP 152/105
[2018-12-01] MEDS ORDERED: MORPHINE SULFATE 10 MG/ML INJ IM ONE (19:06)
[2018-12-01] MEDS ORDERED: ONDANSETRON 4 MG TAB.RAPDIS PO ONE (19:06)
--- NOTE | 2018-12-01 19:34 | ER Document Report ---
ED Medical Screen (RME) - General Chief Complaint: Post Surgical Pain Stated Complaint: LEFT FOOT NUMBNESS Time Seen by Provider: 12/01/18 18:39 Primary Care Provider: LINO NIX MD [Primary Care Provider] - Follow up as needed Notes: Patient is a 43-year-old female that presents to the emergency department for chief complaint of leg pain, swelling after surgery. Patient had ankle surgery last week, and was placed into a splint, she is been having pain associated with this, and swelling, and feels that the splint is on too tight so she came to the emergency department to have it evaluated.. ROS: Other than noted above, the 12 point review of systems was reviewed with the patient and were negative, all pertinent findings are included in the HPI. PHYSICAL EXAMINATION: Vital signs reviewed. GENERAL: Patient appears anxious and uncomfortable HEAD: Atraumatic, normocephalic. EYES: Pupils equal round extraocular movements intact, conjunctiva are normal. ENT: Nares patent NECK: Normal range of motion CV: Heart regular rate and rhythm LUNGS: No respiratory distress Musculoskeletal: Left lower leg, has a plaster posterior short leg splint, with Ivan wrap in place, cap refill just over 3 seconds, and the digits, patient is hypersensitive to touch to the toes as well. NEUROLOGICAL: Normal speech PSYCH: Anxious MDM: I removed the patient's splint in triage, she is feeling much better, cap refill improved, sensation improved in the toes distally, will obtain duplex ultrasound. Patient seen and examined for rapid initial assessment. Vital signs reviewed. A comprehensive ED assessment and evaluation of the patient, analysis of test results and completion of the medical decision making process will be conducted by additional ED providers. *Note is created using voice recognition software and may contain spelling, syntax or grammatical errors. TRAVEL OUTSIDE OF THE [place] IN LAST 30 DAYS: No - Related Data Allergies/Adverse Reactions: celecoxib [From Celebrex] Allergy (Severe, Verified 07/29/18 15:45) Throat swells promethazine HCl [From Phenergan] Allergy (Severe, Verified 07/29/18 15:45) Phelebitis in arm (IV Phenergan only) Sulfa (Sulfonamide Antibiotics) Allergy (Severe, Verified 07/29/18 15:45) Throat swells Tetanus Toxoid,Fluid * [Tetanus Toxoid,Fluid] Allergy (Severe, Verified 07/29/18 15:45) Hives ziprasidone HCl [From Geodon] Allergy (Severe, Verified 07/29/18 15:45) Throat swells ziprasidone mesylate [From Geodon] Allergy (Severe, Verified 07/29/18 15:45) Throat swells zolpidem tartrate [From Ambien] Allergy (Severe, Verified 07/29/18 15:45) Hallucinations lamotrigine [From Lamictal] Allergy (Intermediate, Verified 07/29/18 15:45) Rash on chest Past Medical History - Social History Chew tobacco use (# tins/day): No Frequency of alcohol use: None Drug Abuse: None - Past Medical History Cardiac Medical History: Reports: Hx Hypercholesterolemia, Hx Hypertension Denies: Hx Coronary Artery Disease, Hx Heart Attack Pulmonary Medical History: Denies: Hx Asthma, Hx Bronchitis, Hx COPD, Hx Pneumonia Neurological Medical History: Reports: Hx Migraine. Denies: Hx Cerebrovascular Accident, Hx Seizures Endocrine Medical History: Reports: Hx Diabetes Mellitus Type 2, Hx Hypothyroidism Renal/ Medical History: Denies: Hx Peritoneal Dialysis GI Medical History: Musculoskeltal Medical History: Reports Hx Arthritis, Reports Hx Musculoskeletal Deformity, Reports Hx Musculoskeletal Trauma Psychiatric Medical History: Reports: Hx Anxiety, Hx Bipolar Disorder Traumatic Medical History: Reports: Hx Fractures - left ankle Infectious Medical History: Past Surgical History: Reports: Hx Cholecystectomy, Hx Myringotomy - Right ear to, Hx Oral Surgery - [place] teeth, Hx Orthopedic Surgery, Hx Tonsillectomy. Denies: Hx Pacemaker - Immunizations Hx Diphtheria, Pertussis, Tetanus Vaccination: Yes Physical Exam - Vital signs Vitals: Temp Pulse Resp BP Pulse Ox 98.9 F 93 18 152/105 H 98 12/01/18 18:24 12/01/18 18:24 12/01/18 18:24 12/01/18 18:24 12/01/18 18:24 Course - Vital Signs Vital signs: Temp Pulse Resp BP Pulse Ox 98.9 F 93 18 152/105 H 98 12/01/18 18:24 12/01/18 18:24 12/01/18 18:35 12/01/18 18:24 12/01/18 18:24 Doctor's Discharge - Discharge Referrals: LINO NIX MD [Primary Care Provider] - Follow up as needed
[2018-12-01] MEDS ORDERED: OXYCODONE HCL SR 10 MG TABLET PO ONE (20:46)
--- NOTE | 2018-12-01 20:47 | ER Document Report ---
ED General - General Chief Complaint: Post Surgical Pain Stated Complaint: LEFT FOOT NUMBNESS Time Seen by Provider: 12/01/18 18:39 Primary Care Provider: LINO NIX MD [Primary Care Provider] - Follow up as needed Mode of Arrival: Ambulatory Information source: Patient, COUNTS INCLUDE 234 BEDS AT THE [facility] Records Notes: 43-year-old female with a history of bipolar disorder, anxiety presents with left lower extremity pain and swelling. Patient reports recent surgery with Dr. Bryant at [facility] where she had previous hardware removed. This occurred on November 23, 2018. Patient states that over the last 24-48 hours she has had increasing pain, swelling. Patient did contact her surgeon who recommended evaluation in the emergency department. Patient denies fever, chills, chest pain, shortness of breath, nausea, vomiting, previous history of DVT. Patient has been nonweightbearing as instructed. She denies any new injury, fall. TRAVEL OUTSIDE OF THE [place] IN LAST 30 DAYS: No - HPI Onset: Yesterday Onset/Duration: Gradual, Persistent Quality of pain: Throbbing Severity: Moderate Pain Level: 2 Associated symptoms: denies: Body/muscle aches, Chest pain, Fever, Nausea, Vomiting, Shortness of breath Exacerbated by: Denies Relieved by: Denies Similar symptoms previously: Yes Recently seen / treated by doctor: Yes - Related Data Allergies/Adverse Reactions: celecoxib [From Celebrex] Allergy (Severe, Verified 07/29/18 15:45) Throat swells promethazine HCl [From Phenergan] Allergy (Severe, Verified 07/29/18 15:45) Phelebitis in arm (IV Phenergan only) Sulfa (Sulfonamide Antibiotics) Allergy (Severe, Verified 07/29/18 15:45) Throat swells Tetanus Toxoid,Fluid * [Tetanus Toxoid,Fluid] Allergy (Severe, Verified 07/29/18 15:45) Hives ziprasidone HCl [From Geodon] Allergy (Severe, Verified 07/29/18 15:45) Throat swells ziprasidone mesylate [From Geodon] Allergy (Severe, Verified 07/29/18 15:45) Throat swells zolpidem tartrate [From Ambien] Allergy (Severe, Verified 07/29/18 15:45) Hallucinations lamotrigine [From Lamictal] Allergy (Intermediate, Verified 07/29/18 15:45) Rash on chest Past Medical History - General Information source: Patient, Relative, COUNTS INCLUDE 234 BEDS AT THE [facility] Records - Social History Smoking Status: Never Smoker Chew tobacco use (# tins/day): No Frequency of alcohol use: None Drug Abuse: None Lives with: Family Family History: Arthritis, COPD, CVA, DM, Hyperlipidemia, Malignancy Patient has suicidal ideation: No Patient has homicidal ideation: No - Past Medical History Cardiac Medical History: Reports: Hx Hypercholesterolemia, Hx Hypertension Denies: Hx Coronary Artery Disease, Hx Heart Attack Pulmonary Medical History: Denies: Hx Asthma, Hx Bronchitis, Hx COPD, Hx Pneumonia Neurological Medical History: Reports: Hx Migraine. Denies: Hx Cerebrovascular Accident, Hx Seizures Endocrine Medical History: Reports: Hx Diabetes Mellitus Type 2, Hx Hypothyroidism Renal/ Medical History: Denies: Hx Peritoneal Dialysis GI Medical History: Musculoskeletal Medical History: Reports Hx Arthritis, Reports Hx Musculoskeletal Deformity, Reports Hx Musculoskeletal Trauma Psychiatric Medical History: Reports: Hx Anxiety, Hx Bipolar Disorder Traumatic Medical History: Reports: Hx Fractures - left ankle Infectious Medical History: Past Surgical History: Reports: Hx Cholecystectomy, Hx Myringotomy - Right ear to, Hx Oral Surgery - [place] teeth, Hx Orthopedic Surgery, Hx Tonsillectomy. Denies: Hx Pacemaker - Immunizations Hx Diphtheria, Pertussis, Tetanus Vaccination: Yes Review of Systems - Review of Systems Notes: REVIEW OF SYSTEMS: CONSTITUTIONAL : Denies fever, chills, or sweats. Denies recent illness. Denies weight loss, recent hospitalizations. EENT: Denies visual changes, eye pain. Denies sore throat, oral lesions, difficulty swallowing. CARDIOVASCULAR: Denies chest pain. Denies palpitations. Denies lower extremity edema. RESPIRATORY: Denies cough. Denies shortness of breath, wheezing. GASTROINTESTINAL: Denies abdominal pain or distention. Denies nausea, vomiting, or diarrhea. Denies blood in vomitus, stools, or per rectum. Denies black, tarry stools. Denies constipation. GENITOURINARY: Denies difficulty urinating, painful urination, frequency, blood in urine, or vaginal discharge. MUSCULOSKELETAL: Denies back or neck pain or stiffness. SKIN: Denies rash, lesions or sores. HEMATOLOGIC : Denies easy bruising or bleeding. LYMPHATIC: Denies swollen glands. NEUROLOGICAL: Denies confusion or altered mental status. Denies loss of consciousness. Denies dizziness or lightheadedness. Denies headache. Denies weakness or paralysis. Denies problems difficulty with ambulation, slurred speech. Denies sensory loss, numbness, or tingling. Denies seizures. PSYCHIATRIC: Denies anxiety or stress. Denies depression, suicidal ideation, or homicidal ideation. Denies visual or auditory hallucinations. Physical Exam - Vital signs Vitals: Temp Pulse Resp BP Pulse Ox 98.9 F 93 18 152/105 H 98 12/01/18 18:24 12/01/18 18:24 12/01/18 18:24 12/01/18 18:24 12/01/18 18:24 - Notes Notes: PHYSICAL EXAMINATION: GENERAL: Well-appearing, well-nourished and in no acute distress. HEAD: Atraumatic, normocephalic. EYES: Pupils equal round and reactive to light, extraocular movements intact, conjunctiva are normal. ENT: Nares patent, oropharynx clear without exudates. Moist mucous membranes. NECK: Normal range of motion, supple without lymphadenopathy LUNGS: Breath sounds clear to auscultation bilaterally and equal. No wheezes rales or rhonchi. HEART: Regular rate and rhythm without murmurs ABDOMEN: Soft, nontender, nondistended abdomen. No guarding, no rebound. No masses appreciated. Female : deferred Musculoskeletal: Left lower extremity with 1+ pitting edema of the foot, surgical scar is clean dry and intact with sutures in place. No associated erythema, purulent discharge. Patient does have tenderness with palpation along the ankle. No calf tenderness. Moves all other extremities without difficulty. NEUROLOGICAL: Cranial nerves grossly intact. Normal speech, normal gait. Normal sensory, motor exams PSYCH: Tearful SKIN: Warm, Dry, normal turgor, no rashes or lesions noted. Course - Re-evaluation Re-evalutation: 12/02/18 00:54 Ankle X-Ray 12/01/18 20:34 IMPRESSION: MRI would be more sensitive and specific for osteomyelitis. There is osteopenia and there are postsurgical changes with no acute fracture and no definite osteomyelitis by plain film criteria. 43-year-old female presents for a wound check. Patient underwent surgery of her ankle approximately 1 week ago. She reports it was uneventful and old hardware was removed. Became concerned when leg became more painful, swollen in her splint. Doppler was performed and negative for DVT. X-ray of the ankle was obt ained and showed osteopenia but no acute fracture and no definite osteomyelitis by plain film criteria. Patient is requesting a walking boot with this we did call around to several departments but do not have in the hospital. She is unhappy that she has to go back into a splint but at this point this is the only option. Patient is advised to ice, elevate and keep her upcoming appointment with orthopedic surgery. All compartments are soft. Encouraged to return with any concerns. Patient was evaluated and treated as appropriate for the patient's presenting symptoms and complaint, with consideration of any critical or life threatening conditions that may be associated with their obtained history and exam as noted above. All results were discussed with patient and family member who is at the bedside. Patient provided the opportunity to ask questions, and express concerns. Patient was educated on treatments based on their presumed diagnosis as noted above. At this time we will discharge the patient with return precautions and follow-up recommendations. Verbal discharge instructions given a the bedside. Medication warnings reviewed. Patient is in agreement with this plan and has verbalized understanding of return precautions. After careful consideration I feel that that patient can be safely discharged from the emergency department, they were advised to followup with a primary care physician in 2-3 days. Dictation on this chart was performed using voice recognition software and may result in unintended grammatical, spelling, syntax or errors. - Vital Signs Vital signs: Temp Pulse Resp BP Pulse Ox 98.3 F 89 18 152/105 H 99 12/01/18 21:45 12/01/18 21:45 12/01/18 21:45 12/01/18 18:24 12/01/18 21:45 - Diagnostic Test Radiology reviewed: Image reviewed, Reports reviewed Discharge - Discharge Clinical Impression: Encounter for postoperative wound check, Left leg swelling, Elevated blood pressure reading Condition: Good Disposition: HOME, SELF-CARE Instructions: Leg Pain Nonspecific ([facility]), Possible Evolving Leg DVT ([facility]) Additional Instructions: Your ultrasound today did not show any evidence of a clot in your leg. Unfortunately we do not have walking boot so you will need to go back into your short leg splint. Please follow-up with your orthopedic surgeon as already scheduled. Follow up with your [id number] hours for further care or return to the ED IMMEDIATELY if symptoms worsen or you have any concerns. If you cannot afford to follow up with your primary care physician a list of low cost clinics have been provided at the end of your discharge papers as well. Most prescribed medications have multiple side effects. The safest thing to do is when filling your prescription speak to your pharmacist regarding possible interactions with your normal home medications and over the counter medications such as Ibuprofen, Tylenol, Benadryl. If you experience any symptoms that cause you discomfort or concern you should discontinue the medication immediately and return to the emergency room or call your primary care physician. Forms: Elevated Blood Pressure Referrals: LINO NIX MD [Primary Care Provider] - Follow up as needed
--- NOTE | 2018-12-01 21:16 | RADIOLOGY REPORT (SQ) ---
EXAM DESCRIPTION: XR ANKLE 3 OR MORE VIEWS COMPLETED DATE/TME: 12/01/2018 20:34 CLINICAL HISTORY: 43 years, Female, post op pain COMPARISON: None. EXAM DESCRIPTION: CLINICAL HISTORY: post op pain COMPARISON: None FINDINGS: 3 view(s) submitted. There are degenerative changes. There is diffuse osteopenia and there is fragmentation of the distal fibula and of the talus. No definite periosteal reaction is seen but osteomyelitis is not excluded by plain film. There are calcifications of the soft tissues. No definite acute fracture is seen. IMPRESSION: MRI would be more sensitive and specific for osteomyelitis. There is osteopenia and there are postsurgical changes with no acute fracture and no definite osteomyelitis by plain film criteria.
--- NOTE | 2018-12-02 03:01 | RADIOLOGY REPORT (SQ) ---
EXAM DESCRIPTION: US EXTREMITY VEINS UNILATERAL COMPLETED DATE/TME: 12/01/2018 18:57 CLINICAL HISTORY: 43 years, Female, left leg swelling, pain, recent surgery on ankle COMPARISON: None. TECHNIQUE: Transverse and longitudinal sonographic images of the left lower extremity deep venous system. LIMITATIONS: None. FINDINGS: No visible areas of thrombus formation. Normal compression and augmentation throughout. There was a suboptimal visualization of the peroneal vein and posterior tibial vein. Doppler and spectral analysis with color flow shows normal waveforms IMPRESSION: Negative exam as visualized. Suboptimal visualization of the peroneal vein and posterior tibial vein copyright 2010 [employer]- All Rights Reserved
== END 2018-12-01 21:45 | disposition home or self-care (01) ==
LOC: ER 18:06
DX: G89.18 Other acute postprocedural pain (principal); M79.89 Other specified soft tissue disorders; R03.0 Elevated blood-pressure reading, without diagnosis of hypertension; R20.0 Anesthesia of skin; M79.605 Pain in left leg; I10 Essential (primary) hypertension; E11.9 Type 2 diabetes mellitus without complications; Z98.890 Other specified postprocedural states
CPT/HCPCS: 99284; 96372; 93971; 73610; A9270 ×2; J2270; S0119

== ENCOUNTER 2019-01-04 12:35 | Emergency (ER) | payer MEDICARE, OTHER ==
[2019-01-04] MEDS ORDERED: CLINDAMYCIN 600 MG/D5W RTU 600 MG/50 ML RTUPB IV ONE (13:20)
--- NOTE | 2019-01-04 13:25 | ER Document Report ---
ED Medical Screen (RME) - General Chief Complaint: Leg Swelling Stated Complaint: FOOT AND ANKLE PAIN Time Seen by Provider: 01/04/19 13:18 Primary Care Provider: LINO NIX MD [Primary Care Provider] - Follow up as needed TRAVEL OUTSIDE OF THE [place] IN LAST 30 DAYS: No - HPI Notes: 01/04/19 13:21 Patient is a 43-year-old female with a history of ankle surgery in October who presents emergency department complaining of possible infection near the incision site and increased foot swelling and redness x2 days. Patient states that she has had complications with this ankle of being infected in the past. She has noticed increased swelling, but usually does have some swelling in the foot itself. Denies LEON, fever, neck pain, URI, CP, SOB, Abd pain. I have treated and performed a rapid initial assessment of this patient. A comprehensive ED assessment and evaluation of the patient, analysis of test results and completion of medical decision making process will be conducted by additional ED providers. PHYSICAL EXAMINATION: GENERAL: Well-appearing, well-nourished and in no acute distress. A&Ox4. Answers questions appropriately. LUNGS: Breath sounds clear to auscultation bilaterally and equal. No wheezes rales or rhonchi. HEART: Regular rate and rhythm without murmurs, rubs, gallops. Left ankle/foot: there is erythema, warmth, tenderness near the incision site anterior ankle. + pitting edema to the left foot noted. No obvious streaking or purulent discharge noted. - Related Data Allergies/Adverse Reactions: celecoxib [From Celebrex] Allergy (Severe, Verified 07/29/18 15:45) Throat swells promethazine HCl [From Phenergan] Allergy (Severe, Verified 07/29/18 15:45) Phelebitis in arm (IV Phenergan only) Sulfa (Sulfonamide Antibiotics) Allergy (Severe, Verified 07/29/18 15:45) Throat swells Tetanus Toxoid,Fluid * [Tetanus Toxoid,Fluid] Allergy (Severe, Verified 07/29/18 15:45) Hives ziprasidone HCl [From Geodon] Allergy (Severe, Verified 07/29/18 15:45) Throat swells ziprasidone mesylate [From Geodon] Allergy (Severe, Verified 07/29/18 15:45) Throat swells zolpidem tartrate [From Ambien] Allergy (Severe, Verified 07/29/18 15:45) Hallucinations lamotrigine [From Lamictal] Allergy (Intermediate, Verified 07/29/18 15:45) Rash on chest Past Medical History - Past Medical History Cardiac Medical History: Reports: Hx Hypercholesterolemia, Hx Hypertension Denies: Hx Coronary Artery Disease, Hx Heart Attack Pulmonary Medical History: Denies: Hx Asthma, Hx Bronchitis, Hx COPD, Hx Pneumonia Neurological Medical History: Reports: Hx Migraine. Denies: Hx Cerebrovascular Accident, Hx Seizures Endocrine Medical History: Reports: Hx Diabetes Mellitus Type 2, Hx Hypothyroidism Renal/ Medical History: Denies: Hx Peritoneal Dialysis GI Medical History: Musculoskeltal Medical History: Reports Hx Arthritis, Reports Hx Musculoskeletal Deformity, Reports Hx Musculoskeletal Trauma Psychiatric Medical History: Reports: Hx Anxiety, Hx Bipolar Disorder Traumatic Medical History: Reports: Hx Fractures - left ankle Infectious Medical History: Past Surgical History: Reports: Hx Cholecystectomy, Hx Myringotomy - Right ear to, Hx Oral Surgery - [place] teeth, Hx Orthopedic Surgery, Hx Tonsillectomy. Denies: Hx Pacemaker - Immunizations Hx Diphtheria, Pertussis, Tetanus Vaccination: Yes Physical Exam - Vital signs Vitals: Temp Pulse Resp BP Pulse Ox 98.5 F 93 16 149/70 H 96 01/04/19 12:48 01/04/19 12:48 01/04/19 12:48 01/04/19 12:48 01/04/19 12:48 Course - Vital Signs Vital signs: Temp Pulse Resp BP Pulse Ox 98.5 F 93 16 149/70 H 96 01/04/19 12:48 01/04/19 12:48 01/04/19 12:48 01/04/19 12:48 01/04/19 12:48 Doctor's Discharge - Discharge Referrals: LINO NIX MD [Primary Care Provider] - Follow up as needed
--- NOTE | 2019-01-04 14:18 | RADIOLOGY REPORT (SQ) ---
EXAM DESCRIPTION: ANKLE LEFT COMPLETE COMPLETED DATE/TIME: 01/04/2019 1:50 pm REASON FOR STUDY: swelling/redness @ incision site anterior COMPARISON: 12/01/2018 EXAM PARAMETERS: NUMBER OF VIEWS: Three views. TECHNIQUE: AP, lateral and oblique radiographic images acquired of the left ankle. LIMITATIONS: None. FINDINGS: MINERALIZATION: Normal. BONES: No acute fracture or dislocation. Similar postsurgical -posttraumatic changes. JOINTS: No effusion. SOFT TISSUES: Mildly increased soft tissue soft tissue swelling. Similar medial and lateral soft tis kavin calcifications. OTHER: No other significant finding. IMPRESSION: Mildly increased soft tissue soft tissue swelling. Similar medial and lateral soft tiss ue calcifications. No acute fracture or dislocation. Similar postsurgical -posttraumatic changes. COMMENT: MRI should be considered if there is concern for developing osteomyelitis given its increas ed sensitivity for acute marrow changes. TECHNICAL DOCUMENTATION: JOB ID: [id number] [place]-72 2010 [employer]- All Rights Reserved Reading location - IP/workstation name: [email or web address]
[2019-01-04 14:28] LABS: ABSOLUTE BASOPHILS # (AUTO) 0.1 10^3/uL (0.0-0.2); ABSOLUTE EOSINOPHILS # (AUTO) 0.1 10^3/uL (0.0-0.6); ABSOLUTE LYMPHOCYTES (AUTO) 2.7 10^3/uL (0.5-4.7); ABSOLUTE MONOCYTES (AUTO) 0.6 10^3/uL (0.1-1.4); ABSOLUTE NEUT (AUTO) 3.3 10^3/uL (1.7-8.2); EOSINOPHILS % (AUTO) 1.3 % (0-6); HEMATOCRIT 34.9 % (36.0-47.0); HEMOGLOBIN 12.1 g/dL (12.0-15.5); LYMPHOCYTES % (AUTO) 39.7 % (13-45); MEAN CORPUSCULAR HEMOGLOBIN 36.1 pg (27.0-33.4); MEAN CORPUSCULAR HGB CONC 34.6 g/dL (32.0-36.0); MEAN CORPUSCULAR VOLUME 105 fl (80-97); PLATELET COUNT 240 10^3/uL (150-450); RED BLOOD COUNT 3.34 10^6/uL (3.72-5.28); RED CELL DISTRIBUTION WIDTH 12.5 % (11.5-14.0); TOTAL CELLS COUNTED % (AUTO) 100 %; WHITE BLOOD COUNT 6.8 10^3/uL (4.0-10.5)
[2019-01-04 14:40] LABS: ALANINE AMINOTRANSFERASE 19 U/L (9-52); ALBUMIN 4.3 g/dL (3.5-5.0); ALKALINE PHOSPHATASE 63 U/L (38-126); ANION GAP 8 (5-19); ASPARTATE AMINO TRANSFERASE 54 U/L (14-36); BILIRUBIN,DIRECT 0.3 mg/dL (0.0-0.4); BILIRUBIN,TOTAL 0.3 mg/dL (0.2-1.3); BLOOD UREA NITROGEN 8 mg/dL (7-20); CALCIUM 9.6 mg/dL (8.4-10.2); CARBON DIOXIDE 27 mmol/L (22-30); CHLORIDE 106 mmol/L (98-107); GLUCOSE 102 mg/dL (75-110); POTASSIUM 4.6 mmol/L (3.6-5.0); SODIUM 140.5 mmol/L (137-145); TOTAL PROTEIN 7.3 g/dL (6.3-8.2)
[2019-01-04] MEDS ORDERED: CEPHALEXIN 500 MG CAPSULE PO ONE (16:32)
[2019-01-04 16:46] VITALS: BP 144/76
--- NOTE | 2019-01-04 23:23 | ER Document Report ---
Entered by ONEAL OLIVEIRA SCRIBE 01/04/19 0424 Acting as scribe for:VICTORIA BAKER DO ED Extremity Problem, Lower - General Chief Complaint: Leg Swelling Stated Complaint: FOOT AND ANKLE PAIN Time Seen by Provider: 01/04/19 13:18 Primary Care Provider: LINO NIX MD [Primary Care Provider] - Follow up as needed Mode of Arrival: Ambulatory Information source: Patient Notes: 43 year old female that presents to the emergency department today with complaints of left foot pain/swelling. Patient had an ORIF of the left ankle performed at [facility] several weeks ago. Patient walked without her post-surgical boot for the first time on 12/31/2018 and she states that after that she developed increased swelling and pain to the foot and ankle. Patient states she also noticed an intense itching sensation as well as redness extending from her healing surgical wounds. TRAVEL OUTSIDE OF THE [place] IN LAST 30 DAYS: No - Related Data Allergies/Adverse Reactions: celecoxib [From Celebrex] Allergy (Severe, Verified 07/29/18 15:45) Throat swells promethazine HCl [From Phenergan] Allergy (Severe, Verified 07/29/18 15:45) Phelebitis in arm (IV Phenergan only) Sulfa (Sulfonamide Antibiotics) Allergy (Severe, Verified 07/29/18 15:45) Throat swells Tetanus Toxoid,Fluid * [Tetanus Toxoid,Fluid] Allergy (Severe, Verified 07/29/18 15:45) Hives ziprasidone HCl [From Geodon] Allergy (Severe, Verified 07/29/18 15:45) Throat swells ziprasidone mesylate [From Geodon] Allergy (Severe, Verified 07/29/18 15:45) Throat swells zolpidem tartrate [From Ambien] Allergy (Severe, Verified 07/29/18 15:45) Hallucinations lamotrigine [From Lamictal] Allergy (Intermediate, Verified 07/29/18 15:45) Rash on chest Past Medical History - General Information source: Patient - Social History Smoking Status: Never Smoker Cigarette use (# per day): No Frequency of alcohol use: None Drug Abuse: None Lives with: Family Family History: Arthritis, COPD, CVA, DM, Hyperlipidemia, Malignancy Patient has suicidal ideation: No Patient has homicidal ideation: No - Past Medical History Cardiac Medical History: Reports: Hx Hypercholesterolemia, Hx Hypertension Pulmonary Medical History: Neurological Medical History: Reports: Hx Migraine Endocrine Medical History: Reports: Hx Diabetes Mellitus Type 2, Hx Hypothyroidism GI Medical History: Musculoskeletal Medical History: Reports Hx Arthritis, Reports Hx Musculoskeletal Deformity, Reports Hx Musculoskeletal Trauma Psychiatric Medical History: Reports: Hx Anxiety, Hx Bipolar Disorder Traumatic Medical History: Reports: Hx Fractures - left ankle Infectious Medical History: Past Surgical History: Reports: Hx Cholecystectomy, Hx Myringotomy - Right ear to, Hx Oral Surgery - [place] teeth, Hx Orthopedic Surgery, Hx Tonsillectomy - Immunizations Hx Diphtheria, Pertussis, Tetanus Vaccination: Yes Review of Systems - Review of Systems Constitutional: No symptoms reported EENT: No symptoms reported Cardiovascular: No symptoms reported Respiratory: No symptoms reported Gastrointestinal: No symptoms reported Genitourinary: No symptoms reported Female Genitourinary: No symptoms reported Musculoskeletal: See HPI, Joint pain - left foot pain Skin: No symptoms reported Hematologic/Lymphatic: No symptoms reported Neurological/Psychological: No symptoms reported -: Yes All other systems reviewed and negative Physical Exam - Vital signs Vitals: Temp Pulse Resp BP Pulse Ox 98.5 F 93 16 149/70 H 96 01/04/19 12:48 01/04/19 12:48 01/04/19 12:48 01/04/19 12:48 01/04/19 12:48 - Notes Notes: PHYSICAL EXAM GENERAL: Alert, interacts well. No acute distress. HEAD: Normocephalic, atraumatic. EYES: Pupils equal, round, and reactive to light. Extraocular movements intact. ENT: Oral mucosa moist, tongue midline. NECK: Full range of motion. Supple. Trachea midline. LUNGS: No respiratory distress. ABDOMEN: Soft, non-tender. Non-distended. Bowel sounds present in all 4 quadrants. No guarding, rigidity, or rebound. EXTREMITIES: Moves all 4 extremities spontaneously. 2+ pitting edema to the left foot. Two areas of scabbing over the dorsal distal leg. Erythema extends 2cm laterally and 3cm medially. Estimating Manager erythema over most of the dorsal foot. No erythema over the base of the foot. NEUROLOGICAL: Alert and oriented x3. Normal speech. PSYCH: Normal affect, normal mood. SKIN: Warm, dry, normal turgor. Course - Re-evaluation Re-evalutation: 01/04/19 16:32 CBC unremarkable, CMP unremarkable, ankle x-ray shows postsurgical changes but does not show definitive signs of osteomyelitis. No subcu emphysema. Physical examination does not reveal any fluctuance, no crepitus. Appears to be a superficial cellulitis along with edema. Patient will be restarted on Keflex and discharged home. Recommended to elevate her foot, take the Keflex and return for increasing erythema, fevers or any new or concerning symptoms. - Vital Signs Vital signs: Temp Pulse Resp BP Pulse Ox 98.7 F 78 16 144/76 H 100 01/04/19 16:44 01/04/19 16:44 01/04/19 16:44 01/04/19 16:44 01/04/19 16:44 - Laboratory Result Diagrams: 01/04/19 14:00 01/04/19 14:00 Laboratory results interpreted by me: 01/04/19 01/04/19 14:00 14:00 RBC 3.34 L Hct 34.9 L MCV 105 H MCH 36.1 H AST 54 H Discharge - Discharge Clinical Impression: Cellulitis of left foot Condition: Stable Disposition: HOME, SELF-CARE Additional Instructions: Cellulitis You have an infection of your skin and underlying soft tissues called cellulitis. This is due to bacteria, which can enter through any break in the skin, or even through an irritated hair follicle. Untreated, cellulitis will usually worsen. Antibiotics are required. Usually, warm packs and elevation of the infected area are recommended. You should start getting better within 24 to 36 hours. Most infections respond quickly to the right medication. Follow-up care is important, however, to check for abscess (boil) formation, unsuspected foreign b mark, or resistant infection. If you develop fever, chills, or if the area of infection is becoming rapidly more swollen or painful, call the doctor at once. If this does not improve within 48 hours please call your orthopedic surgeon at [place]. Please return if you have increasing redness, fever or any new or concerning symptoms. Please use an Ivan wrap to help with the swelling. Prescriptions: Cephalexin Monohydrate [Keflex 500 mg Capsule] 500 mg PO Q6H 7 Days capsule Referrals: LINO NIX MD [Primary Care Provider] - Follow up as needed I personally performed the services described in the documentation, reviewed and edited the documentation which was dictated to the scribe in my presence, and it accurately records my words and actions.
== END 2019-01-04 16:48 | disposition home or self-care (01) ==
LOC: ER 12:35
DX: L03.116 Cellulitis of left lower limb (principal); M79.89 Other specified soft tissue disorders; M79.672 Pain in left foot; M25.572 Pain in left ankle and joints of left foot; Z98.890 Other specified postprocedural states; I10 Essential (primary) hypertension; E11.9 Type 2 diabetes mellitus without complications
CPT/HCPCS: 99283; 96365; 96366; 36415; 87040; 85025; 80053; 73610; A9270